=== PATIENT | female | born 1995 | race Caucasian/White ===

== ENCOUNTER 2019-10-07 08:33 | Outpatient (CLI) | payer OTHER | END 2019-10-07 23:59 | disposition home or self-care (01) | LOC: CVU 08:33 | PROVIDERS: ATTEND Internal Medicine Cardiovascular Disease | DX: R07.9 Chest pain, unspecified (principal) | CPT/HCPCS: 0399T; 93306 ==

== ENCOUNTER 2020-03-20 07:24 | Outpatient (CLI) | payer OTHER | END 2020-03-20 23:59 | disposition home or self-care (01) | LOC: CVU 07:24 | PROVIDERS: ATTEND Internal Medicine Cardiovascular Disease | DX: I51.7 Cardiomegaly (principal); R07.9 Chest pain, unspecified | CPT/HCPCS: 93306 ==